=== PATIENT | female | born 1985 | race Caucasian/White ===

== ENCOUNTER 2016-10-10 16:34 | Emergency (ER) | payer OTHER ==
[~2016-10-10] VITALS: Wt 72.0 kg
[2016-10-10] MEDS ORDERED: KETOROLAC 60 MG INJ IM STA (17:04)
[2016-10-10 17:15] LABS: URINE BLOOD (Dip) POC Negative (NEGATIVE)
[2016-10-10] MEDS ORDERED: IBUP-1542 PO (18:25)
[2016-10-10] MEDS ORDERED: TRAM50TA2 PO (18:25)
--- NOTE | 2016-10-10 18:28 | ERD ---
ER Documentation Chief Complaint Date/Time DATE: 10/10/16 TIME: 18:26 Chief Complaint LOWER BACK PAIN HPI This 31-year-old female presents with low back pain after awkward movement yesterday moving some furniture. She denies any bowel bladder incontinence, weakness, fevers, urinary complaints. She denies any previous low back problems. ROS All systems reviewed and are negative except as per history of present illness. Medications Home Meds Active Scripts Ibuprofen* (Motrin*) 600 Mg Tab, 600 MG PO Q6, #20 TAB Prov:CLAIR CHILDERS MD 10/10/16 Tramadol HCl (Tramadol HCl) 50 Mg Tablet, 50 MG PO Q4 Y for PAIN, #15 TAB Prov:CLAIR CHILDERS MD 10/10/16 Allergies Allergies: Coded Allergies: Penicillins (Verified Allergy, Intermediate, RASH, 10/10/16) PMhx/Soc Medical and Surgical Hx: pt denies Medical Hx, pt denies Surgical Hx Hx Alcohol Use: No Hx Substance Use: No Hx Tobacco Use: No Physical Exam Vitals Vital Signs Date Time Temp Pulse Resp B/P Pulse Ox O2 Delivery O2 Flow Rate FiO2 10/10/16 16:46 98.0 75 18 125/72 99 Physical Exam Const: [] Alert, [id number] per Head: Atraumatic Eyes: Normal Conjunctiva ENT: Normal External Ears, Nose and Mouth. Neck: Full range of motion..~ No meningismus. Resp: Clear to auscultation bilaterally Cardio: Regular rate and rhythm, no murmurs Abd: Soft, non tender, non distended. Normal bowel sounds Skin: No petechiae or rashes Back: No midline or flank tenderness. Some generalized tenderness in L4-5 paraspinous muscles. No midline tenderness or deformities. Ext: No cyanosis, or edema Neur: Awake and alert. Normal gait without appreciable focal neurologic deficits. Psych: Normal Mood and Affect Results 24 hrs Laboratory Tests Test 10/10/16 17:14 Bedside Urine pH (LAB) 5.5 Bedside Urine Protein (LAB) Negative Bedside Urine Glucose (UA) Negative Bedside Urine Ketones (LAB) Negative Bedside Urine Blood Negative Bedside Urine Nitrite (LAB) Negative Bedside Urine Leukocyte Esterase (L Negative Current Medications Medications (Trade) Dose Ordered Sig/Kim Route PRN Reason Start Time Stop Time Status Last Admin Dose Admin Ketorolac Tromethamine (Toradol) 60 mg ONCE STAT IM 10/10/16 17:04 10/10/16 17:05 DC 10/10/16 17:19 Procedures/MDM X-ray LS-Spine 3V Interpreted by me: Bones: No fracture, or lytic lesions Joints: No dislocation Foreign body: None. Impression-normal lumbar spine x-ray Urine is negative for infection, hCG is negative. Patient was given Toradol 60 mg IM. Patient presents with signs and symptoms of likely lumbar strain without evidence of epidural abscess, fracture, dislocation, UTI, neurologic deficit. She will be treated with tramadol and ibuprofen and further observation at home. The patient was stable with no new complaints during the ER course. Clinically, there is no current evidence to suggest meningitis, sepsis, acute abdomen, pneumonia, acute coronary syndrome, pulmonary embolism, or any other emergent condition appearing to require further evaluation or hospitalization. The patient should certainly return for any new or worsening symptoms per the aftercare instructions. They should otherwise follow-up with her primary care doctor for reevaluation this week. Departure Diagnosis: Primary Impression: Injury of back Encounter type: initial encounter Qualified Code: S39.92XA - Injury of back , initial encounter Condition: Stable Patient Instructions: Back Sprain/Strain Additional Instructions: Examines normal hoy. Cheque otro vez con alegria doctor primario en el proximo odom or regresa para mas o nueva simptomas. CLAIR CHILDERS MD Oct 10, 2016 18:28
--- NOTE | 2016-10-10 18:54 | RADRPT ---
PROCEDURE: X-ray lumbar spine CLINICAL INDICATION: Pain. TECHNIQUE: 3 views lumbar spine COMPARISON: None FINDINGS: No acute fracture or dislocation. Soft tissues unremarkable. IMPRESSION: RPTAT: [facility] Physician Conrado Date Time Electronically viewed and signed by Serina Kumar Physician on 10/10/2016 18:54 RS/
== END 2016-10-10 19:21 | disposition home or self-care (01) ==
LOC: FTE 16:34
DX: S39.92XA Unspecified injury of lower back, initial encounter (principal); X50.9XXA Other and unspecified overexertion or strenuous movements or postures, initial encounter; Y92.9 Unspecified place or not applicable
CPT/HCPCS: 72100; 81003; J1885; 96372

== ENCOUNTER 2016-10-12 18:22 | Emergency (ER) | payer OTHER ==
[~2016-10-12] VITALS: Ht 162.6 cm; Wt 82.5 kg
[~2016-10-12 18:22] MED LIST: IBUP-1542 PO; TRAM50TA2 PO
[2016-10-12 18:44] VITALS: Ht 162.6 cm; Wt 82.5 kg
[2016-10-12] MEDS ORDERED: ONDANSETRON (ODT) 4 MG TAB ODT STA (20:11)
--- NOTE | 2016-10-12 20:13 | ERD ---
ER Documentation Chief Complaint Date/Time DATE: 10/12/16 TIME: 20:08 Chief Complaint lower abd pain, rectal pain and n/v since yesterday no rectal bleed HPI This pleasant Slovenian-speaking 31-year-old female presents to emergency department with nausea, vomiting, and low abdomen pain since yesterday. Patient reports last bowel movement was yesterday described as hard, denies hemorrhoids or blood in stool, patient reports dysuria, denies hematuria. patient denies any past medical history of cholecystitis, pancreatitis, ROS All systems reviewed and are negative except as per history of present illness. Medications Home Meds Active Scripts Ibuprofen* (Motrin*) 600 Mg Tab, 600 MG PO Q6, #20 TAB Prov:CLAIR CHILDERS MD 10/10/16 Tramadol HCl (Tramadol HCl) 50 Mg Tablet, 50 MG PO Q4 Y for PAIN, #15 TAB Prov:CLAIR CHILDERS MD 10/10/16 Allergies Allergies: Coded Allergies: Penicillins (Verified Allergy, Intermediate, RASH, 10/10/16) PMhx/Soc History of Surgery: Yes (C/S X4) Anesthesia Reaction: No Hx Neurological Disorder: No Hx Respiratory Disorders: No Hx Cardiac Disorders: No Hx Psychiatric Problems: No Hx Miscellaneous Medical Probl: No Hx Alcohol Use: No Hx Substance Use: No Hx Tobacco Use: No Smoking Status: Never smoker Physical Exam Vitals Vital Signs Date Time Temp Pulse Resp B/P Pulse Ox O2 Delivery O2 Flow Rate FiO2 10/12/16 18:44 98.5 76 20 113/62 99 Physical Exam Const: No acute distress Head: Atraumatic Eyes: Normal Conjunctiva. PERRLA, EOMI ENT: Neck: Resp: Clear to auscultation bilaterally Cardio: Regular rate and rhythm, no murmurs Abd: Abdomen soft, right upper and lower quadrants, tender to palpation over pelvic and bladder. No CVA tenderness Skin: Back: Low back tenderness, negative CVA tenderness Ext: Neur: Awake and alert Psych: Normal Mood and Affect Results 24 hrs Laboratory Tests Test 10/12/16 20:23 Bedside Urine pH (LAB) 8.5 Bedside Urine Protein (LAB) Trace Bedside Urine Glucose (UA) Negative Bedside Urine Ketones (LAB) Negative Bedside Urine Blood Negative Bedside Urine Nitrite (LAB) Negative Bedside Urine Leukocyte Esterase (L Negative Current Medications Medications (Trade) Dose Ordered Sig/Kim Route PRN Reason Start Time Stop Time Status Last Admin Dose Admin Ondansetron HCl (Zofran Odt) 4 mg ONCE STAT ODT 10/12/16 20:11 10/12/16 20:18 DC 10/12/16 20:31 Acetaminophen (Tylenol Tab) 650 mg ONCE ONCE PO 10/12/16 20:30 10/12/16 20:31 DC 10/12/16 20:31 Interpretation text Urinalysis negative for evidence of infection, U hCG negative for evidence of . Procedures/MDM This pleasant 31-year-old female with 1 day history of lower abdominal pain, with nausea and vomiting yesterday. Physical exam and history are not consistent with cholelithiasis, pancreatitis, cholecystitis. Biliary colic. Likely cause of abdominal pain is urinary tract infection or constipation, urinalysis negative for any evidence of infection. Patient will be treated with MiraLAX for constipation instructed to follow-up with primary care physician in the next 48 hours or return to emergency room for worsening of pain , fever, nausea, vomiting. I feel the patient is stable for discharge at this time. I have discussed results, examination findings, the treatment plan with the patient and family present prior to discharge. Indications for emergent reevaluation, side effects of medication were also discussed. All questions were answered. Patient verbalizes understanding and agrees with plan of care. Departure Diagnosis: Primary Impression: Abdominal pain Abdominal location: lower abdomen, unspecified Qualified Code: R10.30 - Lower abdominal pain Additional Impression: Constipation Constipation type: unspecified constipation type Qualified Code: K59.00 - Constipation, unspecified constipation type Patient Instructions: Abdominal Pain, Constipation (Adult) [facility] Additional Instructions: Thank you for for coming to [facility] for your care today. Please ask your nurse or provider if you have questions about your care today and do not leave until all your questions have been answered. Please use any medications given as directed and follow-up with your doctor (or the doctor you were referred to) in the next 2-3 days. If you do not have a primary care doctor you may follow up at the [facility] (listed below). You may also use motrin and tylenol as needed for fever and/or pain unless instructed otherwise by your provider or nurse. Indications for more urgent follow-up have been discussed, but you may return to the Emergency Department at ANY time for any worrisome or worsening symptoms. If you have abdominal pain, please know that no test or exam you received is perfect and you should follow up within 8 hours for continued pain. If you had any imaging studies today, such as an X-Ray or CT Scan, these studies will be reviewed later by a radiologist. You will be called if there are important findings that were not identified today, so make sure the contact information you provided at registration is correct. If you received any narcotic pain control medicine today, such as Vicodin, Morphine or Dilaudid, your coordination and judgment may be affected for a number of hours. Please do not drive or operate heavy machinery, and you may want someone to assist you at home. If you were given a prescription for narcotic medication, be aware that it is very addictive- use sparingly and only if necessary. ADARSH MARLEY Oct 12, 2016 20:13
[2016-10-12 20:24] LABS: URINE BLOOD (Dip) POC Negative (NEGATIVE)
[2016-10-12] MEDS ORDERED: ACETAMINOPHEN 325 MG TAB PO ONE (20:30)
[2016-10-12] MEDS ORDERED: POLY17PO6 PO (21:40)
[2016-10-12 21:57] VITALS: TEMP 98.2
== END 2016-10-12 21:57 | disposition home or self-care (01) ==
LOC: FTE 18:22
DX: R10.30 Lower abdominal pain, unspecified (principal); K59.00 Constipation, unspecified; R10.2 Pelvic and perineal pain
CPT/HCPCS: 81003; Z7610; 99283

== ENCOUNTER 2016-12-23 22:57 | Emergency (ER) | payer OTHER ==
[~2016-12-23] VITALS: Ht 167.6 cm; Wt 85.0 kg
[~2016-12-23 22:57] MED LIST changes: +POLY17PO6 PO
[2016-12-23 23:08] VITALS: Ht 167.6 cm; Wt 85.0 kg
--- NOTE | 2016-12-24 00:17 | ERD ---
ER Documentation Chief Complaint Date/Time DATE: 12/24/16 TIME: 00:15 Chief Complaint referred by outside clinic for neck mass x 1 week HPI 31-year-old female presents here in emergency department for complaints of a lump on the left neck area, patient noticed this one week ago, complains of mild pain on affected area throbbing pain 4/10 scale, intermittent. Patient denies any sore throat or ear pain. Patient was sent here by primary care doctor for possible ultrasound to be done. ROS All systems reviewed and are negative except as per history of present illness. Medications Home Meds Active Scripts Polyethylene Glycol* (Miralax*) 17 Gm Powd.pack, 17 GM PO DAILY, #7 Prov:DONELL,ADARSH 10/12/16 Ibuprofen* (Motrin*) 600 Mg Tab, 600 MG PO Q6, #20 TAB Prov:CLAIR CHILDERS MD 10/10/16 Tramadol HCl (Tramadol HCl) 50 Mg Tablet, 50 MG PO Q4 Y for PAIN, #15 TAB Prov:CLAIR CHILDERS MD 10/10/16 Allergies Allergies: Coded Allergies: Penicillins (Verified Allergy, Intermediate, RASH, 10/10/16) PMhx/Soc Medical and Surgical Hx: pt denies Medical Hx, pt denies Surgical Hx History of Surgery: Yes (C/S X4) Anesthesia Reaction: No Hx Neurological Disorder: No Hx Respiratory Disorders: No Hx Cardiac Disorders: No Hx Psychiatric Problems: No Hx Miscellaneous Medical Probl: No Hx Alcohol Use: No Hx Substance Use: No Hx Tobacco Use: No FmHx Family History: No coronary disease, No diabetes, No other Physical Exam Vitals Vital Signs Date Time Temp Pulse Resp B/P Pulse Ox O2 Delivery O2 Flow Rate FiO2 12/23/16 23:08 98.2 65 20 122/76 99 Physical Exam GENERAL: The patient is well developed and appropriate for usual state of health, in no apparent distress. HEENT: Atraumatic. Ears: Normal tympanic membrane, no erythema or bulging. No ear canal swelling. No ear discharge. Nose: normal nasal turbinates, no erythema or swelling. Normal nasal discharge. Throat: oropharynx clear. No tonsillar swelling or tonsillar exudates. No lymphadenopathy. Noted mild swelling on the left neck area, no palpable masses noted. Nontender. CHEST: Clear to auscultation bilaterally. There are no rales, wheezes or rhonchi. HEART: Regular rate and rhythm. No murmurs, clicks, rubs or gallops. No S3 or S4. ABDOMEN: Soft, nontender and nondistended. Good bowel sounds. No rebound or guarding. No gross peritonitis. No gross organomegaly or masses. No Bravo sign or McBurney point tenderness. BACK: No midline or flank tenderness. EXTREMITIES: Equal pulses bilaterally. There is no peripheral clubbing, cyanosis or edema. No focal swelling or erythema. Full range of motion. Grossly neurovascularly intact. NEURO: Alert and oriented. Cranial nerves 2-12 intact. Motor strength in all 4 extremities with 5/5 strength. Sensation grossly intact. Normal speech and gait. SKIN: There is no apparent rash or petechia. The skin is warm and dry. HEMATOLOGIC AND LYMPHATIC: There is no evidence of excessive bruising or lymphedema. No gross cervical, axillary, or inguinal lymphadenopathy. Results 24 hrs PROCEDURE: Ultrasound soft tissue CLINICAL INDICATION: Left neck swelling TECHNIQUE: An ultrasound of the left neck was performed utilizing duong scale and Doppler imaging. COMPARISON: None. FINDINGS: No fluid collection, mass, or cyst is identified in the left neck. There is no evidence of lymphadenopathy. The left thyroid lobe is normal in appearance. No abnormal vascularity is identified in the left neck. IMPRESSION: 1. Normal appearance of the left neck. RPTAT: HTAR .Bernard Lucia MD, Date Time Electronically viewed and signed by .Bernard Lucia MD, on 12/24/2016 02:11 .R/ CC: LARRY MALDONADO NP Procedures/MDM Medical decision making: Patient's left neck swelling pain nonspecific at this time, no palpable masses at this time, no enlarged thyroid noted. Ultrasound does not show any infection, any enlarged thyroid, no chills. Patient was given prescription for ibuprofen for pain, is advised to follow-up with primary care doctor in 2-3 days for reevaluation of symptoms. Patient was advised to return to emergency department for any worsening symptoms. Disposition: Home. Stable. Departure Diagnosis: Primary Impression: Neck pain Condition: Stable Patient Instructions: Neck Pain, No Trauma LARRY MALDONADO NP Dec 24, 2016 00:17
--- NOTE | 2016-12-24 02:11 | RADRPT ---
PROCEDURE: Ultrasound soft tissue CLINICAL INDICATION: Left neck swelling TECHNIQUE: An ultrasound of the left neck was performed utilizing duong scale and Doppler imaging. COMPARISON: None. FINDINGS: No fluid collection, mass, or cyst is identified in the left neck. There is no evidence of lymphade nopathy. The left thyroid lobe is normal in appearance. No abnormal vascularity is identified in t he left neck. IMPRESSION: 1. Normal appearance of the left neck. RPTAT: HTAR .Bernard Lucia MD, MD Date Time Electronically viewed and signed by .Bernard Lucia MD, MD on 12/24/2016 02:11 .R/
[2016-12-24] MEDS ORDERED: IBUP100O10 PO (02:27)
[2016-12-24 02:35] VITALS: BP 117/58; PULSE 58; RESP 18
== END 2016-12-24 02:37 | disposition home or self-care (01) ==
LOC: FTE 22:57
DX: M54.2 Cervicalgia (principal)
CPT/HCPCS: 76536